=== PATIENT | female | born 1975 | race Caucasian/White ===

== ENCOUNTER 2020-07-23 15:05 | Outpatient (CLI) | payer BC, SELFPAY | END 2020-07-23 15:06 | disposition home or self-care (01) | LOC: ANHAUDIO 15:07 | PROVIDERS: PCP Family Medicine; Visit Provider Nurse Practitioner Family | DX: H90.42 Sensorineural hearing loss, unilateral, left ear, with unrestricted hearing on the contralateral side (principal) | CPT/HCPCS: 92557; 92567 ==

== ENCOUNTER 2020-08-14 14:21 | Outpatient (RCR) | payer BC, SELFPAY | END 2020-08-14 23:59 | disposition home or self-care (01) | LOC: ANHAUDIO 14:21 | PROVIDERS: PCP Family Medicine; Visit Provider Family Medicine | DX: Z46.1 Encounter for fitting and adjustment of hearing aid (principal) | CPT/HCPCS: V5257 ==

== ENCOUNTER 2020-10-03 15:24 | Outpatient (CLI) | payer BC, SELFPAY ==
--- NOTE | ~2020-10-03 | MM_ITS ---
EXAMINATION: MM screening oneil BI w angélica HISTORY: Screening mammogram TECHNIQUE: Craniocaudal and mediolateral oblique 3-D tomosynthesis images were obtained and synthetic 2-D images were generated. CAD analysis was submitted and interpreted. COMPARISON: 07/18/2019, , 06/03/2017 bilateral digital screening mammogram examinations BREAST PARENCHYMAL COMPOSITION: There are scattered areas of fibroglandular density. FINDINGS: Occasional bilateral benign calcifications. There is no evidence of suspicious mass, calcif ication, or architectural distortion to suggest malignancy in either breast. There has been no suspic ious interval change. IMPRESSION: 1. No mammographic evidence of malignancy. 2. Recommend routine screening mammography in one year. BI-RADS Category 2: Benign finding(s). Reviewed, dictated and finalized at location A. [employer]
== END 2020-10-03 15:25 | disposition home or self-care (01) ==
LOC: ANHIMG 15:25
PROVIDERS: PCP Family Medicine; Visit Provider Advanced Practice Midwife
DX: Z12.31 Encounter for screening mammogram for malignant neoplasm of breast (principal)
CPT/HCPCS: 77063; 77067

== ENCOUNTER → 2021-01-10 08:46 | Outpatient (CLI) | payer BC, SELFPAY ==
[2021-01-10 11:10] LABS: Influenza Control Positive
[2021-01-10 20:12] LABS: SARS-CoV-2 RNA PCR Negative
== END ==
PROVIDERS: PCP Family Medicine; Visit Provider Nurse Practitioner Family
DX: R68.89 Other general symptoms and signs (principal); Z20.822 Contact with and (suspected) exposure to COVID-19
CPT/HCPCS: 87804; C9803; U0003; U0005

== ENCOUNTER 2021-02-01 09:18 | Outpatient (CLI) | payer BC, SELFPAY | END 2021-02-01 09:19 | disposition home or self-care (01) | LOC: ANHCOVIDVC 09:18 | PROVIDERS: PCP Family Medicine | DX: Z23 Encounter for immunization (principal) | CPT/HCPCS: 0001A; 91300 ==

== ENCOUNTER 2021-02-22 10:32 | Outpatient (CLI) | payer BC, SELFPAY | END 2021-02-22 10:33 | disposition home or self-care (01) | LOC: ANHCOVIDVC 10:33 | PROVIDERS: PCP Family Medicine | DX: Z23 Encounter for immunization (principal) | CPT/HCPCS: 0002A; 91300 ==

== ENCOUNTER 2021-12-17 17:16 | Outpatient (CLI) | payer BC, SELFPAY ==
--- NOTE | ~2021-12-17 | MM_ITS ---
EXAMINATION: MM screening [facility] BI w angélica HISTORY: Screening mammogram TECHNIQUE: Craniocaudal and mediolateral oblique 3-D tomosynthesis images were obtained and synthetic 2-D images were generated. CAD analysis was submitted and interpreted. COMPARISON: 10/03/2020, 07/18/2019, 06/24/2018 BREAST PARENCHYMAL COMPOSITION: There are scattered areas of fibroglandular density. FINDINGS: There is no evidence of suspicious mass, calcification, or architectural distortion to sugg est malignancy in either breast. There has been no suspicious interval change. IMPRESSION: 1. No mammographic evidence of malignancy. 2. Recommend routine screening mammography in one year. BI-RADS Category 1: Negative Reviewed, dictated and finalized at location A. SERVIC[employer] HEL[employer]
== END 2021-12-17 17:17 | disposition home or self-care (01) ==
LOC: ANHIMG 17:18
PROVIDERS: PCP Family Medicine; Visit Provider Advanced Practice Midwife
DX: Z12.31 Encounter for screening mammogram for malignant neoplasm of breast (principal)
CPT/HCPCS: 77063; 77067

== ENCOUNTER 2023-03-11 20:10 | Emergency (ER) | payer BC, SELFPAY ==
[2023-03-11 20:14] VITALS: BP 136/89; PULSE 86; RESP 16; TEMP 36.9; O2SAT 97
--- NOTE | 2023-03-11 21:57 | ED.GENADULT ---
HPI - General Adult General Chief complaint: Head Injury Stated complaint: head injury Time Seen by Provider: 03/11/23 20:53 History of Present Illness HPI narrative: is a 48-year-old female presenting ED with a chief complaint of a head injury. The patient had new cabinets installed in her house. When she was getting up from feeding the dog she struck the top of her head on the corner of the cabinet. She denies loss of consciousness, she denies use of blood thinners or anticoagulation. She has had some nausea but no vomiting. She has no neurologic findings. There was some mild bleeding on site. Her tetanus is up-to-date. No other complaints. Related Data Home Medications Medication Instructions Recorded Confirmed trazodone 100 mg tablet 100 mg PO .bedtime 06/22/20 02/05/22 venlafaxine 100 mg tablet 200 mg PO DAILY 06/22/20 02/05/22 Saccharomyces boulardii 250 mg 250 mg PO BID 02/05/22 02/05/22 capsule (Daily Probiotic (S. boulardii)) bupropion HCl 200 mg tablet,12 hr 200 mg PO DAILY 02/05/22 02/05/22 sustained-release (Wellbutrin SR) cholecalciferol (vitamin D3) 25 25 mcg PO DAILY 02/05/22 02/05/22 mcg (1,000 unit) capsule glucosamine 375 bu-zoqpxxlls-cdj tablet PO 02/05/22 02/05/22 no1 500 mg-C 15 mg-gautam 0.5 mg tablet (Ctprepijwld-Elykgfrdluo-BUP Complex) multivitamin 1 tablet PO DAILY 02/05/22 02/05/22 Allergies Allergy/AdvReac Type Severity Reaction Status Date / Time cefuroxime Allergy Unknown Unknown Verified 03/11/23 20:11 [facility] Past Medical History Medical History BMI 29.0-29.9,adult Family History Family History Grandparent Carcinoma of colon Diabetes mellitus Breast cancer Hypertension Father Heart disease History of open heart surgery Social History Social History Alcohol intake: current Drinks per week: 1 Substance use: never Substance use type: does not use Living arrangements: with family Occupation/Education: occupation 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 Head: Small abrasion to the top of his scalp without gaping laceration EYES: EOMI, pupils NAYAN NOSE: Atraumatic NECK: Trachea midline RESPIRATORY: No increased rate of breathing CARDIOVASCULAR: RRR, ABDOMINAL: Non-distended MUSCULOSKELETAl: No obvious deformities NEURO: Alert. Cranial nerves 2-12 grossly intact. Sensation light touch, motor function cerebellar function intact for 4 extremities. Gait exam was normal. SKIN:: Warm, dry. Normal color PSYCHIATRIC: Normal affect Course Vital Signs Vital signs: Vital Signs Temperature 98.4 F 03/11/23 20:14 Pulse Rate 86 03/11/23 20:14 Respiratory Rate 16 03/11/23 20:14 Blood Pressure 136/89 03/11/23 20:14 Pulse Oximetry 97 03/11/23 20:14 Oxygen Delivery Room Air 03/11/23 20:14 Temperature 98.4 F 03/11/23 20:14 Pulse Rate 86 03/11/23 20:14 Respiratory Rate 16 03/11/23 20:14 Blood Pressure 136/89 03/11/23 20:14 Pulse Oximetry 97 03/11/23 20:14 Oxygen Delivery Room Air 03/11/23 20:14 Medical Decision Making MDM Narrative Medical decision making narrative: -Presentation: 48-year-old female presenting ED with chief complaint of head injury. 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
[2023-03-11] MEDS: ACETAMINOPHEN 500 MG TABLET 1000 MG PO (22:15)
[2023-03-11 22:18] VITALS: BP 126/91; PULSE 82; RESP 18; O2SAT 99
== END 2023-03-11 22:58 | disposition home or self-care (01) ==
PROVIDERS: Emergency Provider Emergency Medicine; PCP Family Medicine
DX: S00.01XA Abrasion of scalp, initial encounter (principal); W22.09XA Striking against other stationary object, initial encounter
CPT/HCPCS: 99282; A9270

== ENCOUNTER 2023-03-17 14:39 | Outpatient (CLI) | payer BC, SELFPAY ==
--- NOTE | ~2023-03-17 | MM_ITS ---
EXAMINATION: MM screening oneil BI w angélica HISTORY: Screening mammogram TECHNIQUE: Craniocaudal and mediolateral oblique 3-D tomosynthesis images were obtained and synthetic 2-D images were generated. CAD analysis was submitted and interpreted. COMPARISON: 12/17/2021, 10/03/2020, 07/18/2019 bilateral screening mammogram examinations BREAST PARENCHYMAL COMPOSITION: The breasts are almost entirely fatty. FINDINGS: Bilateral benign-appearing axillary tail lymph nodes. There is no evidence of suspicious ma ss, calcification, or architectural distortion to suggest malignancy in either breast. There has been no suspicious interval change. IMPRESSION: 1. No mammographic evidence of malignancy. 2. Recommend routine screening mammography in one year. BI-RADS Category 1: Negative Reviewed, dictated and finalized at location A.
== END 2023-03-17 14:40 | disposition home or self-care (01) ==
PROVIDERS: PCP Family Medicine; Visit Provider Nurse Practitioner
DX: Z12.31 Encounter for screening mammogram for malignant neoplasm of breast (principal)
CPT/HCPCS: 77063; 77067

== ENCOUNTER 2023-08-24 03:01 | Day surgery (SDC) | payer BC, SELFPAY ==
[2023-08-11 14:43] VITALS: BMI 26.7
--- NOTE | 2023-08-22 09:27 | PM.HPGS ---
History of Present Illness History of Present Illness Consent: Risks, benefits, and alternatives have been discussed and questions answered. Patient agrees to proceed with procedure. Chief complaint: neoplasm screening Narrative: Yissel Laureano is a 48 year old female Was referred for colon cancer screening. Review of Systems Review of Systems: All systems reviewed & are unremarkable except as noted in HPI and below PMFSH Past Medical History Medical History BMI 27.0-27.9,adult BMI 29.0-29.9,adult Family History Family History Grandparent Carcinoma of colon Diabetes mellitus Breast cancer Hypertension Father Heart disease History of open heart surgery Mother No problems noted. Sibling No problems noted. 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 Gender identity (if verbalized by the patient): Female Sexual Orientation (if Verbalized by the Patient): Straight or Heterosexual Spiritual care concerns: No Agree to blood products: Yes Meds Home Medications and Allergies Home Medications Medication Instructions Recorded Confirmed Type trazodone 100 mg tablet 100 mg PO .bedtime 06/22/20 08/12/23 History cholecalciferol (vitamin D3) 25 25 mcg PO DAILY 02/05/22 08/12/23 History mcg (1,000 unit) capsule multivitamin 1 tablet PO DAILY 02/05/22 08/12/23 History bupropion HCl 300 mg 24 hr tablet, 300 mg PO QAM 03/24/23 08/12/23 History extended release venlafaxine 75 mg capsule,extended 75 mg PO DAILY 06/30/23 08/12/23 History release 24 hr (Effexor XR) Allergies Allergy/AdvReac Type Severity Reaction Status Date / Time cefuroxime Allergy Unknown Unknown Verified 08/24/23 09:22 Exam Const: General: alert Orientation/consciousness: patient oriented x3 Resp: Auscultation: clear to auscultation bilaterally Cardio: Rhythm: regular rhythm GI: GI Palp: Yes Soft to palpation and No Tenderness to palpation present (GI) Neuro: General: patient oriented x3 Assessment and Plan Assessment and plan (1) Encounter for screening colonoscopy: Code(s): Z12.11 - Encounter for screening for malignant neoplasm of colon Status: Acute Assessment and Plan: Colonoscopy with possible biopsy or polypectomy or cautery or injection of substances.
[2023-08-24 09:23] VITALS: BP 136/81; PULSE 94; RESP 18; TEMP 36.6; O2SAT 99
[2023-08-24] MEDS: LACTATED RINGERS 1,000 ML 150 ML IV CONT (09:33)
--- NOTE | 2023-08-24 09:37 | WPDANESEPPF ---
Anes - Initial Pre Proc Eval Procedure: Operation Date: 08/24/23 10:30 Proposed Procedures p Screening Colonoscopy - Jalil Singh MD Date/Time: 08/24/23 09:37 Surgeon: Jalil Singh MD Pre Op Diagnosis: neoplasm screening Patient Data Age: 48 Gender: F Height: 1.65 m Weight: 78.8 kg Last Vital Signs Temp 98 F 08/24/23 09:23 Pulse 94 08/24/23 09:23 Resp 18 08/24/23 09:23 BP 136/81 08/24/23 09:23 Pulse Ox 99 08/24/23 09:23 O2 Del Method Room Air 08/24/23 09:23 Allergies Allergy/AdvReac Type Severity Reaction Status Date / Time cefuroxime Allergy Unknown Unknown Verified 08/24/23 09:22 Home Medications Medication Instructions Recorded Confirmed Type trazodone 100 mg tablet 100 mg PO .bedtime 06/22/20 08/12/23 History cholecalciferol (vitamin D3) 25 25 mcg PO DAILY 02/05/22 08/12/23 History mcg (1,000 unit) capsule multivitamin 1 tablet PO DAILY 02/05/22 08/12/23 History bupropion HCl 300 mg 24 hr tablet, 300 mg PO QAM 03/24/23 08/12/23 History extended release venlafaxine 75 mg capsule,extended 75 mg PO DAILY 06/30/23 08/12/23 History release 24 hr (Effexor XR) Patient hx anesthesia problems: none Family hx anesthesia problems: none Results Review: All pre-operative results and documents have been reviewed as part of the pre-operative evaluation. [facility] Past Medical History Medical History BMI 27.0-27.9,adult BMI 29.0-29.9,adult Family History Family History Grandparent Carcinoma of colon Diabetes mellitus Breast cancer Hypertension Father Heart disease History of open heart surgery Mother No problems noted. Sibling No problems noted. 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 Gender identity (if verbalized by the patient): Female Sexual Orientation (if Verbalized by the Patient): Straight or Heterosexual Spiritual care concerns: No Agree to blood products: Yes Anes - Eval Final PreProcedure Day of Procedure 08/24/23 09:37 Patient weight: normal Heart: regular rate and rhythm Lungs: clear to auscultation Airway: Mallampati scale class II Neurological: alert and oriented Last oral intake: >/= 8 hours ASA classification: II Emergent: no Anesthetic plan: proceed Anesthesia type and monitoring: general GIVS and standard monitoring Results Review: All pre-operative results and documents have been reviewed as part of the pre-operative evaluation. Informed Consent: The patient's anesthetic plan and its attendant risks and benefits were discussed with the patient/family/POA. Questions were solicited and answers provided to the satisfaction of the patient/family/POA.
[2023-08-24 10:26] VITALS: BP 104/71; PULSE 79; RESP 12; O2SAT 95
[2023-08-24 10:36] VITALS: BP 104/72; PULSE 83; RESP 19; O2SAT 99
[2023-08-24 10:46] VITALS: BP 107/74; PULSE 72; RESP 17; O2SAT 97
== END 2023-08-24 10:55 | disposition home or self-care (01) ==
PROVIDERS: PCP Family Medicine; Visit Provider Internal Medicine Gastroenterology
PROC: 0DJD8ZZ Inspection of Lower Intestinal Tract, Via Natural or Artificial Opening Endoscopic (ICD-10-PCS; CPT 45378; principal; 2023-08-24 10:30)
DX: Z12.11 Encounter for screening for malignant neoplasm of colon (principal)
CPT/HCPCS: 45378; J2001; J2704; J7120

== ENCOUNTER 2024-07-07 14:00 | Outpatient (RCR) | payer SELFPAY | END 2024-07-07 23:59 | disposition home or self-care (01) | LOC: ANHAUDIO 14:00 | PROVIDERS: PCP Family Medicine; Visit Provider Family Medicine | DX: Z46.1 Encounter for fitting and adjustment of hearing aid (principal) | CPT/HCPCS: 99199; V5014 ==

== ENCOUNTER 2024-07-19 16:18 | Outpatient (CLI) | payer OTHER, SELFPAY ==
--- NOTE | ~2024-07-19 | CT_ITS ---
EXAMINATION: CT abdomen pelvis w con DATE: 07/19/2024 16:55 INDICATION: Right lower quadrant abdominal pain. TECHNIQUE: Computed tomography (CT) of the abdomen and pelvis was performed with 100 mL Omnipaque 350 intravenous contrast. Automated exposure control and iterative reconstruction technique were employe d. The dose-length product was 482.00 mGy-cm. COMPARISON: None. FINDINGS: The visualized portion bases demonstrate mild atelectasis on the right. No pleural effusion . There is normal. No pericardial effusion. The liver, gallbladder, spleen, pancreas, adrenal glands, and kidneys are normal. There is an intrauterine device in expected position. There are no dilated l oops of bowel. The appendix is normal. There are no pathologically enlarged lymph nodes. No ascites. There is severe lower lumbar spondylosis. IMPRESSION: 1. No specific etiology for the patient's symptoms. Reviewed, dictated and finalized at location A.
[2024-07-19 17:07] LABS: Hematocrit 37.2 % (37.0-47.0); Hemoglobin 12.7 g/dL (12.0-15.0); Mean Corpuscular HGB Conc 34.1 g/dl (32-36); Mean Corpuscular Hemoglobin 31.1 pg (26-34); Mean Platelet Volume 11.8 fl (7.4-10.4); Platelet Count Result 195 k/mm3 (150-375); Red Blood Count 4.09 M/mm3 (4.2-5.4); Red Cell Distribution Width 12.1 % (11.5-14.5); White Blood Count 9.9 K/mm3 (4.5-10.0)
[2024-07-19 17:18] LABS: Alanine Aminotransferase 16 U/L (6-35); Albumin Level 4.1 g/dL (3.5-5.1); Alkaline Phosphatase 56 U/L (38-126); Anion Gap 9 mmol/L (4-12); Aspartate Amino Transferase 20 U/L (14-36); Bilirubin,Total 0.4 mg/dL (0.2-1.3); Blood Urea Nitrogen 15 mg/dL (7-17); Calcium 8.6 mg/dL (8.4-10.2); Carbon Dioxide 25 mmol/L (22-30); Chloride 98 mmol/L (98-107); Estimated Glomerular Filt Rate > 60; Glucose 77 mg/dL (65-110); Potassium 3.8 mmol/L (3.4-5.0); Sodium 132 mmol/L (137-145)
== END 2024-07-19 16:19 | disposition home or self-care (01) ==
PROVIDERS: PCP Family Medicine; Visit Provider Nurse Practitioner Family
DX: R10.31 Right lower quadrant pain (principal); R10.813 Right lower quadrant abdominal tenderness
CPT/HCPCS: 36415; 74177; 80053; 85027; Q9967

== ENCOUNTER 2024-09-12 15:20 | Outpatient (CLI) | payer OTHER, SELFPAY ==
--- NOTE | ~2024-09-12 | MM_ITS ---
EXAMINATION: MM screening oneil BI w angélica HISTORY: Screening TECHNIQUE: Craniocaudal and mediolateral oblique 3-D tomosynthesis images were obtained and synthetic 2-D images were generated. CAD analysis was submitted and interpreted. COMPARISON: Comparison to multiple prior studies sequentially, with oldest reviewed study dated 06/03. BREAST PARENCHYMAL COMPOSITION: Not dense: There are scattered areas of fibroglandular density. FINDINGS: There is no evidence of suspicious mass, calcification, or architectural distortion to sugg est malignancy in either breast. There has been no suspicious interval change. IMPRESSION: 1. No mammographic evidence of malignancy. 2. Recommend routine screening mammography in one year. BI-RADS Category 1: Negative Reviewed, dictated and finalized at location B.
== END 2024-09-12 15:21 | disposition home or self-care (01) ==
LOC: ANHIMG 15:38
PROVIDERS: PCP Family Medicine; Visit Provider Nurse Practitioner
DX: Z12.31 Encounter for screening mammogram for malignant neoplasm of breast (principal)
CPT/HCPCS: 77063; 77067

== ENCOUNTER 2024-11-02 07:27 | Day surgery (SDC) | payer OTHER, SELFPAY ==
[2024-09-14 09:16] VITALS: BMI 24.6
[2024-11-02 08:34] VITALS: BP 110/79; PULSE 77; RESP 16; TEMP 36.7; O2SAT 97
[2024-11-02] MEDS: LACTATED RINGERS 1,000 ML 150 ML IV CONT (08:50)
--- NOTE | 2024-11-02 08:58 | P.HP_ITS ---
History of Present Illness History of Present Illness Consent: Risks, benefits, and alternatives have been discussed and questions answered. Patient agrees to proceed with procedure. Chief complaint: Neoplasia screening Narrative: Yissel Laureano is a 49 year old female presents for follow-up colonoscopy. Patient reports that her weight appetite and bowel movements are normal. She denies abdominal pain. Family history is significant grandmother had colon ca ncer. Her mother did not have polyps. Patient underwent colonoscopy 1 year ago but was limited by retained stool. She presents today for follow-up colonoscopy. Review of Systems Review of Systems: All systems reviewed & are unremarkable except as noted in HPI and below PMFSH Past Medical History Medical History Blood present in stool delivery delivered Encounter for screening colonoscopy Head injury Screening for diabetes mellitus Screening for thyroid disorder Family History Family History Grandparent Carcinoma of colon Diabetes mellitus Breast cancer Hypertension Father Heart disease History of open heart surgery AAA (abdominal aortic aneurysm) Mother Hypertension Sibling Anxiety Social History Social History Smoking status: Never smoker Second hand tobacco smoke exposure: No Alcohol intake: current Drinks per week: 1 Substance use: never Substance use type: does not use Do You Feel Safe in your Home?: Yes Lack of Transportation: No Lack of Food: Never True Current Housing: I Have Housing Concerned About Future Housing: No Difficulty Paying Gas/Electric Bills: No Difficulty Paying for Meds: No Currently Unemployed: No Education: Master's Degree or Higher Difficulty w/ Childcare or Family Care: No Living arrangements: with family 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/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: occupation 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 Gender identity (if verbalized by the patient): Female Sexual Orientation (if Verbalized by the Patient): Straight or Heterosexual Spiritual care concerns: No Agree to blood products: Yes Meds Home Medications and Allergies Home Medications ?Medication ?Instructions ?Recorded ?Confirmed ?Type trazodone 100 mg tablet 100 mg PO .bedtime 06/22/20 11/02/24 History cholecalciferol (vitamin D3) 25 25 mcg PO DAILY 02/05/22 11/02/24 History mcg (1,000 unit) capsule multivitamin 1 tablet PO DAILY 02/05/22 11/02/24 History bupropion HCl 300 mg 24 hr tablet, 300 mg PO QAM 03/24/23 11/02/24 History extended release ketoconazole 2 % topical cream 1 applic topical BID #30 grams 03/14/24 11/02/24 Rx tirzepatide (weight loss) 5 mg/0.5 5 mg (0.5 mL) subcut WEEKLY #2 mL 08/08/24 11/02/24 Rx mL subcutaneous pen injector venlafaxine 150 mg 150 mg PO DIRECTED 11/02/24 11/02/24 History capsule,extended release 24 hr Allergies Allergy/AdvReac Type Severity Reaction Status Date / Time cefuroxime AdvReac Intermediate Rash Verified 11/02/24 08:28 Vital Signs Vital Signs - 24 hr 11/02/24 08:34 Temperature 98.0 F Pulse Rate 77 Respiratory Rate 16 Blood Pressure 110/79 Pulse Oximetry 97 Oxygen Delivery Room Air Exam Narrative: Physical exam reveals patient to be alert. Vital signs stable. HEENT exam is unremarkable. Patient is anicteric. Lungs are clear to auscultation and to percussion. heart is without murmur or extra sounds. Abdomen bowel sounds are present soft and nontender with no hepatosplenomegaly . Digital external rectal exam is normal. Assessment and Plan Assessment and plan (1) Screen for colon cancer: Code(s): Z12.11 - Encounter for screening for malignant neoplasm of colon Status: Acute Assessment and Plan: Patient presents today for screening colonoscopy.
--- NOTE | 2024-11-02 09:35 | WPDANESEPPF ---
Anes - Initial Pre Proc Eval Procedure: Operation Date: 11/02/24 09:45 Proposed Procedures p Diagnostic Colonoscopy - Wili Sheikh MD Date/Time: 11/02/24 09:35 Surgeon: Wili Sheikh MD Pre Op Diagnosis: Neoplasia screening Patient Data Age: 49 Gender: F Height: 1.65 m Weight: 63.05 kg Last Vital Signs Temp 36.7 C 11/02/24 08:34 Pulse 77 11/02/24 08:34 Resp 16 11/02/24 08:34 BP 110/79 11/02/24 08:34 Pulse Ox 97 11/02/24 08:34 O2 Del Method Room Air 11/02/24 08:34 Allergies Allergy/AdvReac Type Severity Reaction Status Date / Time cefuroxime AdvReac Intermediate Rash Verified 11/02/24 08:28 Home Medications ?Medication ?Instructions ?Recorded ?Confirmed ?Type trazodone 100 mg tablet 100 mg PO .bedtime 06/22/20 11/02/24 History cholecalciferol (vitamin D3) 25 25 mcg PO DAILY 02/05/22 11/02/24 History mcg (1,000 unit) capsule multivitamin 1 tablet PO DAILY 02/05/22 11/02/24 History bupropion HCl 300 mg 24 hr tablet, 300 mg PO QAM 03/24/23 11/02/24 History extended release ketoconazole 2 % topical cream 1 applic topical BID #30 grams 03/14/24 11/02/24 Rx tirzepatide (weight loss) 5 mg/0.5 5 mg (0.5 mL) subcut WEEKLY #2 mL 08/08/24 11/02/24 Rx mL subcutaneous pen injector venlafaxine 150 mg 150 mg PO DIRECTED 11/02/24 11/02/24 History capsule,extended release 24 hr Patient hx anesthesia problems: none Family hx anesthesia problems: none Results Review: All pre-operative results and documents have been reviewed as part of the pre-operative evaluation. [facility] Past Medical History Medical History delivery delivered Encounter for screening colonoscopy Head injury Blood present in stool Screening for thyroid disorder Screening for diabetes mellitus Family History Family History Grandparent Carcinoma of colon Diabetes mellitus Breast cancer Hypertension Father Heart disease History of open heart surgery AAA (abdominal aortic aneurysm) Mother Hypertension Sibling Anxiety Social History Social History Smoking status: Never smoker Second hand tobacco smoke exposure: No Alcohol intake: current Drinks per week: 1 Substance use: never Substance use type: does not use Do You Feel Safe in your Home?: Yes Lack of Transportation: No Lack of Food: Never True Current Housing: I Have Housing Concerned About Future Housing: No Difficulty Paying Gas/Electric Bills: No Difficulty Paying for Meds: No Currently Unemployed: No Education: Master's Degree or Higher Difficulty w/ Childcare or Family Care: No Living arrangements: with family 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/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: occupation 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 Gender identity (if verbalized by the patient): Female Sexual Orientation (if Verbalized by the Patient): Straight or Heterosexual Spiritual care concerns: No Agree to blood products: Yes Anes - Eval Final PreProcedure Day of Procedure 11/02/24 09:35 Patient weight: normal Heart: regular rate and rhythm Lungs: clear to auscultation Airway: Mallampati scale class II Neurological: alert and oriented Last oral intake: >/= 8 hours ASA classification: II Emergent: no Anesthetic plan: proceed Anesthesia type and monitoring: general GIVS and standard monitoring Results Review: All pre-operative results and documents have been reviewed as part of the pre-operative evaluation. Informed Consent: The patient's anesthetic plan and its attendant risks and benefits were discussed with the patient/family/POA. Questions were solicited and answers provided to the satisfaction of the patient/family/POA.
[2024-11-02 10:00] VITALS: BP 105/69; PULSE 79; RESP 16; O2SAT 100
[2024-11-02 10:12] VITALS: BP 112/70; PULSE 81; RESP 16; O2SAT 100
[2024-11-02 10:20] VITALS: BP 111/73; PULSE 75; RESP 18; O2SAT 100
--- NOTE | 2024-11-02 10:46 | WPDANESPN ---
Anes - Prog Note Post-Op Date/Time: 11/02/24 10:46 Cardiovascular status: normal Respiratory status: normal Airway patency: baseline Mental status: baseline Post-Op hydration status: normal Vital Signs: Last Vital Signs Temp 36.7 C 11/02/24 08:34 Pulse 75 11/02/24 10:20 Resp 18 11/02/24 10:20 BP 111/73 11/02/24 10:20 Pulse Ox 100 11/02/24 10:20 O2 Del Method Room Air 11/02/24 10:20 Pain Score (VAS): 0/10 I/O: Intake & Output 11/01/24 11/02/24 11/02/24 23:59 07:59 15:59 Intake Total 500 Balance 500 Patient Feedback: Patient satisfied with anesthetic care.
== END 2024-11-02 10:29 | disposition home or self-care (01) ==
PROVIDERS: PCP Family Medicine; Visit Provider Internal Medicine Gastroenterology
PROC: 0DJD8ZZ Inspection of Lower Intestinal Tract, Via Natural or Artificial Opening Endoscopic (ICD-10-PCS; CPT 45378; principal; 2024-11-02 09:45)
DX: Z12.11 Encounter for screening for malignant neoplasm of colon (principal)
CPT/HCPCS: 45378

== ENCOUNTER 2025-09-14 14:17 | Outpatient (CLI) | payer OTHER, SELFPAY ==
--- NOTE | ~2025-09-14 | MM_ITS ---
EXAMINATION: MM screening oneil BI w angélica HISTORY: Screening TECHNIQUE: Craniocaudal and mediolateral oblique 3-D tomosynthesis images were obtained and synthetic 2-D images were generated. CAD analysis was submitted and interpreted. COMPARISON: Comparison to multiple prior studies sequentially, with oldest reviewed study dated 06/24/2018. BREAST PARENCHYMAL COMPOSITION: Not dense: There are scattered areas of fibroglandular density. FINDINGS: There is a developing focal asymmetry medially in the left breast on CC view, anterior third, not definitely seen on MLO view. Right breast is stable without evidence for malignancy. IMPRESSION: 1. Developing left breast asymmetry. 2. Additional mammographic views and possible breast ultrasound are recommended. BI-RADS Category 0: Incomplete: Needs additional imaging evaluation. Reviewed, dictated and finalized at location O. IMPRESSION: 1. Developing left breast asymmetry. 2. Additional mammographic views and possible breast ultrasound are recommended . BI-RADS Category 0: Incomplete: Needs additional imaging evaluation.
--- OUTSIDE RECORDS SUMMARY | 2025-09-14 15:23 | XMS_ITS | Clinical Summary ---
Author Organization [facility] [employer] Address [address] [place] [address] Care Team Providers Care Tax Appraiser Name Role Phone Ladarius Hagan MD Primary Care Provider [phone] Source Comments [facility] [employer],non-owned Affiliates and Associated Physician Practices is amultiple site organization consisting of ambulatory clinics and hospital sitesin [place], [place], [place] and [place]. This disclosure is being madepursuant to the Care Everywhere program and may not contain all information available regarding this patient. Last updated 18.[facility] [employer] Allergies No known active allergies Medications * Be aware that medications may not be up to date on this document. Alwaysverify current medications with the patient. traZODone (DESYREL) 100 MG tablet Take 200 mg by mouth at bedtime Active BuPROPion HCl (WELLBUTRIN PO) Acti ve VENLAFAXINE HCL PO Active BusPIRone HCl (BUSPAR PO) Active Immunizations Immunization Administration Dates Next Due INFLUENZA VACCINE, QUADR. 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 PROFESSOR Pulse 80 12/13/2017 2:55 PM DENTISTRY PROFESSOR Temperature 36.7 C (98 F) 12/13/2017 2:55 PM DENTISTRY PROFESSOR Respiratory Rate 16 12/13/2017 2:55 PM DENTISTRY PROFESSOR Oxygen Saturation 96% 12/13/2017 2:55 PM DENTISTRY PROFESSOR Inhaled Oxygen Concentration - - Weight 65.3 kg (144 lb) 12/13/2017 2:55 PM DENTISTRY PROFESSOR Height 167.6 cm (5' 6) 12/13/2017 2:55 PM DENTISTRY PROFESSOR Body Mass Index 23.24 12/13/2017 2:55 PM DENTISTRY PROFESSOR Plan of Treatment Health Maintenance Due Date Last Done Comments COLOGUARD (AGES 45-75) - COL ON CA SCREENING 1976 COLON MONITORING 1976 COLONOSCOPY - COLON CA SCREENING 1976 CT COLONOGRAPHY - COLON CA SCREENING 1976 Colorectal Cancer Screening 1976 FIT - COLON CA SCREENING 1976 FLEX SIG - COLON CA SCREENING 1976 LIPID TESTING 1976 MAMMOGRAM 1976 HIV SCREENING 1991 HEPATITIS C SCREENING 03/01/1994 DTAP/TDAP/TD VACCINES (1 - Tdap) 1995 HEPATITIS B VACCINE (1 of 3 - 19+ 3-dose series) 1995 DEPRESSION SCREENING 11/23/2024 COVID-19 VACCINE (1 - 2023-2 5 season) 2025 INFLUENZA VACCINE (#1) 2025 9, 10/27/2018 ZOSTER VACCINE (1 of 2) 2026 HIB VACCINE Aged Out No longer eligi ble based on patient's age to complete this topic HPV VACCINE Aged Out No longer eligi ble based on patient's age to complete this topic MENINGOCOCCAL (Group B) VACCINE SHARED DECISION-MAKING Aged Out No longer eligible based on patient's age to complete this topic MENINGOCOCCAL GROUPS A/C/Y/W VACCINE Aged Out No longer eligible b ased on patient's age to complete this topic Insurance [employer] Care Teams Tax Appraiser Relationship Specialty Start Date End Date Ladarius Hagan MD [address] [place] [address] PCP - General Family Medicine 01/12/17
--- OUTSIDE RECORDS SUMMARY | 2025-09-14 15:23 | XMS_ITS | Data Portability ---
Author Organization [facility] Address [address] [place] [address] Care Team Providers Care Sports Nutritionist Name Role Phone TORI BADILLO Primary Care Provider Assessment Encounter Date Assessment Date Assessment LastModified by Organization Details LastModified Time 02/22/2024 02/22/2024 Annual gynecological exam performed. Patient will come back in a year unless there are new symptoms. [email or web address] Not available 02/22/2024 11:06:43 03/09/2025 03/09/2025 Annual gynecological exam performed. Patient will come back in a year unless there are new symptoms. [email or web address] Not available 03/09/2025 14:51:59 Plan of Treatment Reminders Order Date Submit Date Provider Last Modified By Organization Details Last Modified Time Details Appointments None recorded. Lab urinalysis, dipstick 2024 025 [email or web address] [place], [address], [place], [address], 5 15:44:08 culture, urine 2024 025 [facility] (Lab), [address], [place], [address], 5 05:33:17 thyroglobul in Ab, serum 2022 023 [facility] (Lab), [address], [place], [address], 3 05:11:53 free T3, quantitativ e, dialysis serum or plasma 2022 023 [facility] (Lab), [address], [place], [address], 3 05:11:52 T4, free, serum 2022 023 [facility] (Lab), [address], [place], [address], 3 05:11:53 TSH, serum or plasma 2022 023 [facility] (Lab), [address], [place], [address], 3 05:11:52 Referral None recorded. Procedures None recorded. Surgeries None recorded. Imaging MAMMO, screening, digital, bilateral [address] [facility], [address], [place], [address], 5 12:36:45 MAMMO, screening, digital, bilateral 2023 024 [facility], [address], [place], [address], 4 05:01:04 US, pelvis, complete 2023 024 [facility], [address], [address], [place], [address], 4 05:01:04 Medication Orders phentermine 15 mg capsule 2022 023 [id number], [address], [place], [place], [id number], 3 09:25:43 phentermine 15 mg capsule 2022 023 [id number], [address], [place], [place], [id number], 09:25:43 Patient TargetsNo targets recorded. Patient InstructionsNo instructions recorded. Reason for Referral None Reported. Results Created Date Observation Date Name Description Value Unit Range Abnormal Flag Note LastModifiedBy Organization Detail LastModifiedTime 05/13/2005/13/2023 HEMOG LOBIN A1C hemoglobin A1C 5.2 % 0-5.6 The Ameri can Diabe boo Assoc iatio n recom mends that a prima ry goal of thera py lorne d be a HBA1C of < 7% and that physi cians shoul d reeva luate the treat ment regim en in patie nts with HBA1C value s consi stent ly > 8%. <5.7% Roladna l 5.7 - 6.4% Incre ased risk for diabe boo >=6.5 % Diagn ostic of diabe boo <7.0% Goal of thera py >8.0% Actio n sugge sted Not Available [facility] (Lab) [address], [place], [address], 05/14/2023 03:14:55 07/24/2007/24/2023 TSH TSH 0.68 uIU/m L 0.30-5 .33 Not Available [facility] (Lab) [address] [place], [address], 07/25/2023 05:11:52 07/24/2007/24/2023 FREE T3 T3, free 2.93 pg/mL 2.50-3 .90 Not Available [facility] (Lab) [address] [place], [address], 07/25/2023 05:11:52 07/24/20 23 07/24/2023 T4 FREE T4, free 0.64 NG/dL 0.60-1 .40 Not Available [facility] (Lab) [address] [place], [address], 07/25/2023 05:11:53 07/24/20 23 07/24/2023 THYRO ID ANTIB KASEY PANEL thyroglobuli n antibody <1.0 IU/mL <=3.9 Not Available [facility] (Lab) [address], [place], [address], 07/25/2023 05:11:53 07/24/20 23 07/24/2023 THYRO ID ANTIB KASEY PANEL thyroperoxid ase antibodies 1.1 IU/mL 0.0-9. 0 This assay was perfo rmed using Beckm an Coult er reage nts and test kits. Value s obtai nikki with other assay metho ds or kits canno t be used inter hilton eably . Not Available [facility] (Lab) [address], [place], [address], 07/25/2023 05:11:53 02/22/20 24 02/22/2024 IMAGE GUIDE D PAP AND HPV REGAR DLESS image guided Pap, HPV regardless of Pap result SEE RESULT S BELOW CASE REPOR T: Cytol ogy Gynec ologi xander Repor t Case: [id number] Autho maribel g Provi terrance: Nazanin Coyle, LISA Colle cted: 02/21 1433 Order ing Locat ion: [place] [facility] Recei goldy: 02/22 0123 First Scree n: Strut z, Willi am, CT Rescr een: Joy Gonzalez , LUKAS Speci men: Scree asad Pap - Image d, Cervi x STATE MENT OF ADEQU ACY: Satis facto ry for evalu ation Trans forma tion zone compo nent prese nt FINAL DIAGN OSIS: Negat yohana for Intra epith elial Rebekah longoria or Becca guajardo (NIL) . Elect ulises pugh d by Joy Gonzalez , CT on 024 at 2:53 PM ----- ----- ----- ----- ----- ----- ----- ----- ----- ----- ----- ----- ----- ----- ----- ----- ----- ---- HPV RESUL TS: HPV mRNA E6/E7 : No HPV mRNA Detec mckayla NOTE: This high risk HPV mRNA assay detec ts fourt een high- risk HPV types (16, 18, 31, 33, 35, 39, 45, 51, 52, 56, 58, 59, 66, 68) witho ut diffe renti ation . COMME NT: This speci men was revie wed by a Cytot echno logis t and/o r Patho logis t (as indic ated in this repor t) after evalu ation using the Thinp rep Imagi ng Syste m. CLINI XANDER INFOR MATIO N: Menst rual Statu s: LMP (if appli cable ): Clini xander Histo ry/Pr eviou s Pap: Type of Neopl alberto (if appli cable ): Signi fican t Clini xander Findi ngs: Other Histo ry: Hormo joshua (if appli cable ): PAP EDUCA MIKI L NOTE: The Pap Test is a scree asad test with an inher ent false negat yohana rate. Liqui d-bas ed sampl ing may decre ase, but will not elimi pina, false negat yohana resul ts. A negat yohana resul t does not precl ude the prese nce and/o r devel opmen t of disea se, since the prese nce of abnor mal cells in the sampl e depen ds on the locat ion of the lesio n and sampl ing techn ique. Cleo nued regul ar scree asad is the best metho d of cance r preve ntion . If repor mckayla cytol ogic findi ng do not corre late with physi xander and/o r histo rical findi ngs, furth er inves tigat ion is recom yasmani d, as shane syed nted. Not Available [facility] (Lab) [address], [place], [address], 02/24/2024 15:56:35 03/09/20 25 03/09/2025 CULTU RE: URINE result report SEE RESULT S BELOW abnormal Test: Cultu re: Urine Speci men Sourc e: Urine - Clean Catch Speci men Type: Urine Speci men Date: 2024 1504 Resul t Date: 2024 0429 Resul t Statu s: Final resul t Abnor mal: Yes Resul ting Lab: [facility] [address] [facility] [address] Tel: CULTU RE ----- ----- ----- --- 10,00 0-25, 000 CFU/m l Strep tococ cus dysga lacti ae (Abno rmal) Not Available [facility] (Lab) [address], [place], [address], 03/11/2025 05:33:17 03/09/20 25 03/09/2025 urina lysis , dipst ick Leukocytes - Not Available [facility] [address], [place], [address], 03/09/2025 15:42:49 03/09/20 25 03/09/2025 urina lysis , dipst ick Nitrite - Not Available [facility] [address], [place], [address], 03/09/2025 15:42:49 03/09/20 25 03/09/2025 urina lysis , dipst ick Urobilinogen - Not Available [facility] [address], [place], [address], 03/09/2025 15:42:49 03/09/20 25 03/09/2025 urina lysis , dipst ick Protein trace Not Available [facility] [address], [place], [address], 03/09/2025 15:42:49 03/09/20 25 03/09/2025 urina lysis , dipst ick pH 8 Not Available [facility] [address], [place], [address], 03/09/2025 15:42:49 03/09/20 25 03/09/2025 urina lysis , dipst ick Specific Clute 1.010 Not Available [facility] [address], [place], [address], 03/09/2025 15:42:49 03/09/20 25 03/09/2025 urina lysis , dipst ick Ketone - Not Available [facility] [address], [place], [address], 03/09/2025 15:42:49 03/09/20 25 03/09/2025 urina lysis , dipst ick Bilirubin - Not Available [facility] [address], [place], [address], 03/09/2025 15:42:49 03/09/20 25 03/09/2025 urina lysis , dipst ick Glucose - Not Available [place] [address], [place], [address], 03/09/2025 15:42:49 03/09/20 25 03/09/2025 urina lysis , dipst ick Appearance clear Not Available [facility] [address], [place], [address], 03/09/2025 15:42:49 03/09/20 25 03/09/2025 urina lysis , dipst ick Color light yellow Not Available [facility] [address], [place], [address], 03/09/2025 15:42:49 09/12/20 24 09/12/2024 MAMMO , scree asad, digit al, bilat eral No observ ation record ed. [facility] [address], [place], [address], 09/14/2024 21:42:07 Result Notes None recorded. Problems Name Problem SNOMED Code Status Onset Date Resolution Date Notes Provider Name and Address Organization Details Recorded Time Speciali zed medical examinat ion Completed 201002/01/2021 Routine gynecolo gical examinat ion;Prac nic ID: 0001 Marielena dubose [facility] 12:50:32 Screenin g for malignan t neoplasm of cervix Completed 201002/01/2021 Pap Smear;Pr actice ID: 0001 Marielena dubose [facility] 12:50:25 Vaginiti s and vulvovag initis Completed 201002/01/2021 Vaginiti s and vulvovag initis, unspecif ied;Prac nic ID: 0001 Marielena dubose [facility] 12:50:34 Malaise and fatigue [id number] Completed 201002/01/2021 Fatigue And Malaise; Practice ID: 0001 Marielena dubose [facility] 12:50:16 Adult health examinat ion Completed 201302/01/2021 ROUTINE MEDICAL EXAM;Rec orded Elsewher e: No Locat ion: Yao prasad [facility] S ource: EHR Hand Shaper andrea: N Practi ce ID: 0001 Ousmane lable Time: 11:30:00 AM Marielena dubose [facility] 12:50:09 Postvira l fatigue syndrome [id number] Completed 201502/01/2021 Postvira l fatigue syndrome ;Practic e ID: 0001 Marielena Anderson [facility] 12:50:19 Removal of intraute rine device Completed 201502/01/2021 Encounte r for removal of intraute rine contrace ptive device;P ractice ID: 0001 Marielena dubose, [facility] 12:50:23 Pregnanc y test negative [id number] Completed 201502/01/2021 Encounte r for pregnanc y test, result negative ;Practic e ID: 0001 Marielena dubose, [facility] 12:50:21 Insertio n of intraute rine contrace ptive device Completed 201510/09/2021 Encounte r for insertio n of intraute rine contrace ptive device;R ecorded Elsewher e: No [facility] andrea: N Practi ce ID: 0001 Ousmane lable Time: 09:15:00 AM Marielena dubose [facility] 16:29:54 Depressi ve disorder [id number] Completed 201510/09/2021 Major depressi ve disorder , single episode, unspecif ied;Prac nic ID: 0001 Marielena dubose, [facility] 16:29:52 Body mass index 25-29 - overweig ht [id number] Completed 201602/01/2021 Body mass index (BMI) 25.0-25. 9, adult;Re corded Elsewher e: No Locat ion: [facility] S ource: EHR Hand Shaper andrea: N Practi ce ID: 0001 Ousmane lable Time: 10:15:00 AM Marielena dubose [facility] 12:50:12 Screenin g for malignan t neoplasm of rectum Completed 201702/01/2021 Encounte r for screenin g for malignan t neoplasm of rectum;P ractice ID: 0001 Marielena dubose, [facility] 12:50:[address] Concept Completed 201802/01/2021 Encntr for gynecologist exam (general ) (routine ) w/o abn findings ;Practic e ID: 0001 Marielena dubose [facility] 12:50:[address] Concept Completed 201802/01/2021 Encntr for general adult medical exam w/o abnormal findings ;Recorde d Elsewher e: No Locat ion: Yao prasad [facility] S ource: EHR Hand Shaper andrea: N Practi ce ID: 0001 Ousmane lable Time: 01:15:00 PM Marielena dubose [facility] 12:50:29 Problem Notes None recorded. Procedures Surgical History Date Name Laterality Status Provider Name and Address Organization Details Recorded Time 09/12/20 24 Date of Last Mammogram completed [facility] 03/09/2025 14:52:36 02/22/20 24 Date of Last Pap Smear completed Kristin Navarro [facility] 03/09/2025 14:52:15 02/02/20 21 IUD Removal completed Marielenarivera Anderson [facility] 02/01/2021 12:51:55 02/02/20 21 IUD Insertion completed Vicenta Tam CNM [address], [place], [address], [facility] 02/01/2021 12:57:21 11/23/19 11 sinusotomy, multiple completed Marielena Anderson [facility] 10/10/2021 12:18:33 04/12/20 08 section completed Marielena Anderson [facility] 07/23/2020 20:50:11 03/22/20 03 [facility]2020 20:50:56 Colonoscopy completed Marielenarivera Anderson [facility] 10/09/2021 16:29:34 Imaging Results None recorded. Procedure Notes None recorded. Medical Equipment None Reported. Allergies No known drug allergies Medications Name Sig Start Date Stop Date Status Note LastModified by Organization Details LastModified Time Mirena 21 mcg/24 hr (up to 8 years) 52 mg intrauter ine device 2020 active inserted 1 and need removed 8 Not Available Not Available Not Available buspirone 5 mg tablet take 1 tablet by oral route 3 times every day 04/26 completed Prescrib ed Elsewher e: Yes Loca tion: Yao prasad [facility] odify By: [email or web address] Encount er DateTime : 10/17/20 15 01:00:00 PM Not Available Not Available Not Available venlafaxi ne ER 75 mg capsule,e xtended release 24 hr TAKE 1 CAPSULE BY MOUTH EVERY MORNING active Not Available Not Available No t Available ketoconaz ole 2 % shampoo 07/23 completed Not Available Not Available Not Available benzonata te 200 mg capsule TAKE 1 CAPSULE BY MOUTH THREE TIMES DAILY FOR 10 DAYS 03/09 completed Not Available Not Available Not Available Effexor XR 37.5 mg capsule,e xtended release take 1 capsule by oral route every day with food 02/01 completed Prescrib ed Elsewher e: Yes Loca tion: Yao prasad [facility] odify By: [email or web address] Encounte r DateTime : 07/13/20 12 05:15:00 PM Not Available Not Available Not Available clonazepa m 1 mg tablet take 1 tablet by oral route 3 times every day 04/26 completed Prescrib ed Elsewher e: Yes [facility] By: [email or web address] Encount er DateTime : 10/15/20 11 11:00:00 AM Not Available Not Available Not Available Zithromax Z-Cam 250 mg tablet take 2 tablet (500MG) by oral route every day for 1 day then 1 tablet (250 mg) by oral route once daily for 4 days 10/31 completed Prescrib ed Elsewher e: No Locat ion: Yao prasad [facility] odify By: gmedical Encount er DateTime : 10/23/20 11 10:14:18 AM Not Available Not Available Not Available phentermi ne 15 mg capsule TAKE 1 CAPSULE BY MOUTH EVERY DAY 08/04 completed Not Available Not Available Not Available venlafaxi ne ER 150 mg capsule,e xtended release 24 hr TAKE ONE CAPSULE BY MOUTH EVERY MORNING 03/09 completed Not Available Not Available Not Available Wellbutri n SR 150 mg tablet, 12 hr sustained -release TAKE ONE TABLET BY MOUTH TWICE DAILY 04/17 completed Prescrib ed Elsewher e: No Locat ion: Yao prasad [facility] odify By: [email or web address] Prasad jorge DateTime : 03/30/20 03:22:20 PM Not Available Not Available Not Available ciproflox acin 500 mg tablet TAKE 1 TABLET BY MOUTH EVERY 12 HOURS active Not Available Not Available No t Available clindamyc in 1 %-benzoyl peroxide 5 % topical gel 10/09 completed Not Available Not Available Not Available Wellbutri n SR 100 mg tablet, 12 hr sustained -release take 1 tablet by oral route 2 times every day 04/26 completed Prescrib ed Elsewher e: Yes Loca tion: Yao prasad [facility] odify By: Encount er DateTime : 04/20/20 18 11:30:00 AM Not Available Not Available Not Available flaxseed oil 1,000 mg capsule 07/13 completed Prescrib ed Elsewher e: Yes Loca tion: [facility]ao [facility] odify By: kiki Villanueva r DateTime : 10/15/20 11 11:00:00 AM Not Available Not Available Not Available Metrogel Vaginal 0.75 % (37.5 mg/5 gram) insert 1 applicat orful (37.5MG) by vaginal route every day at bedtime 07/13 completed Prescrib ed Elsewher e: No [facility] By: kiki Lovelacete r DateTime : 10/23/20 11 10:14:18 AM Not Available Not Available Not Available trazodone 100 mg tablet TAKE 1 TABLET BY MOUTH DAILY AT BEDTIME active Not Available Not Available No t Available Vitamin D2 1,250 mcg (50,000 unit) capsule take 1 capsule by oral route every week 04/17 completed Prescrib ed Elsewher e: No [facility]at [facility] od[facility] By: miley patel DateTime : 02/19/20 16 10:45:51 AM Not Available Not Available Not Available ketoconaz ole 2 % topical cream APPLY TOPICALL Y TO THE AFFECTED AREA TWICE DAILY active Not Available Not Available No t Available amoxicill in 875 mg-potass ium clavulana te 125 mg tablet TAKE 1 TABLET BY MOUTH TWICE DAILY FOR 10 DAYS 12/24 completed Not Available Not Available Not Available amoxicill in 500 mg-potass ium clavulana te 125 mg tablet TAKE 1 TABLET BY MOUTH EVERY 12 HOURS FOR 7 DAYS active Not Available Not Available No t Available Wellbutri n SR 200 mg tablet, 12 hr sustained -release take 1 tablet by oral route 2 times every day 04/20 completed Prescrib ed Elsewher e: No [facility]at [facility] odify By: miley patel DateTime : 04/30/20 17 09:43:01 AM Not Available Not Available Not Available ciclopiro x 1 % shampoo APPLY TOPICALL Y 2 TO 3 TIMES WEEKLY active Not Available Not Available No t Available bupropion HCl XL 300 mg 24 hr tablet, extended release TAKE 1 TABLET BY MOUTH EVERY MORNING active Not Available Not Available No t Available bupropion HCl XL 150 mg 24 hr tablet, extended release Take 1 tablet every day by oral route. active Not Available Not Available No t Available topiramat e 50 mg tablet TAKE 1 TABLET BY MOUTH TWICE DAILY 08/04 completed Not Available Not Available Not Available nitrofura ntoin monohydra te/macroc rystals 100 mg capsule Take 1 capsule every 12 hours by oral route for 7 days. 02/17 completed Not Available Not Available Not Available Cinnamon 500 mg capsule 07/13 completed Prescrib ed Elsewher e: Yes [facility]oca [facility] odify By: [email or web address] Kay hector DateTime : 10/15/20 11 11:00:00 AM Not Available Not Available Not Available Vitamin D3 10 mcg (400 unit) capsule 07/13 completed Prescrib ed Elsewher e: Yes Loca tion: [facility] odify By: [email or web address] Encounharley r DateTime : 10/15/20 11 11:00:00 AM Not Available Not Available Not Available cholecalc iferol (vitamin D3) 1,250 mcg (50,000 unit) capsule 07/23 completed Not Available Not Available Not Available Oleptro ER 300 mg tablet,ex tended release take 1 tablet by oral route every day at bedtime on an empty stomach 02/01 completed Prescrib ed Elsewher e: Yes Loca tion: [facility] odify By: [email or web address] lli Manoharo jacques DateTime : 10/15/20 11 11:00:00 AM Not Available Not Available Not Available sodium,po tassium,m ag sulfates 17.5 gram-3.13 gram-1.6 gram oral soln TAKE DIRECTED PER WRITTEN INSTRUCT IONS THAT WERE MAILED TO YOU 03/09 completed Not Available Not Available Not Available Saxenda 3 mg/0.5 mL (18 mg/3 mL) subcutane ous pen injector Inject 0.6mg SQ daily x 7 days, then 1.2mg SQ daily x 7 days, then 1.8mg SQ daily x 7 days, then 2.4mg SQ daily x 7 days, then 3mg daily ongoing (maintan ce dose) 02/21 completed Not Available Not Available Not Available clindamyc in 1 %-benzoyl peroxide 5 % topical gel with pump 07/23 completed Not Available Not Available Not Available Zepbound 5 mg/0.5 mL subcutane ous pen injector INJECT 5 MG (0.5 ML) SUBCUTAN EOUSLY WEEKLY active Not Available Not Available No t Available Zepbound 2.5 mg/0.5 mL subcutane ous pen injector ADMINIST ER 2.5 MG UNDER THE SKIN WEEKLY 03/09 completed Not Available Not Available Not Available Vitals Date Recorded Body height Body mass index (BMI) Body weight Systolic And Diastolic Provider Name and Address Organization Details Last Updated DateTime 02/22/2024 163.83 cm 30.4 kg/m2 06598.63 g 117/78 mm[Hg] Niyah Bledsoe [facility] 02/22/2024 14:49:39 Date Recorded Body height Body mass index (BMI) Body weight Systolic And Diastolic Provider Name and Address Organization Details Last Updated DateTime 03/09/2025 163.83 cm 22 kg/m2 42813.73 g 127/77 mm[Hg] Kristin Navarro [facility] 03/09/2025 15:00:49 Date Recorded Body height Body mass index (BMI) Body weight Systolic And Diastolic Provider Name and Address Organization Details Last Updated DateTime 05/16/2023 163.83 cm 29.2 kg/m2 37465.48 g 130/88 mm[Hg] [facility] 05/16/2023 12:07:40 Date Recorded Body height Body mass index (BMI) Body weight Systolic And Diastolic Provider Name and Address Organization Details Last Updated DateTime 06/13/2023 163.83 cm 28.6 kg/m2 42259.11 g 117/79 mm[Hg] [facility] 06/13/2023 11:45:11 Date Recorded Body height Body mass index (BMI) Body weight Systolic And Diastolic Provider Name and Address Organization Details Last Updated DateTime 07/24/2023 163.83 cm 29.8 kg/m2 80871.98 g 129/82 mm[Hg] Cheryl Carter [facility] 07/24/2023 12:24:49 Social History Question Answer Notes LastModified by Organizat ion Details LastModified Time Tobacco Smoking Status Never Smoker Marielena dubose, [facility] 10/09/2021 16:29:34 Do You Have An Advance Directive? No [email or web address] Information n ot available 10/09/2021 If You Are , What Was Your Level Of Alcohol Consumption Prior To ? None [email or web address] Information not available 10/09/2021 How Many Years Have You Consumed Alcohol? 24 [email or web address] Information not available 10/09/2021 Are You Blind Or Do You Have Difficulty Seeing? No [email or web address] Information n ot available 12/24/2022 What Is Your Level Of Caffeine Consumption? Moderate [email or web address] Information not available 10/09/2021 How Much Tobacco Do You Chew? None [email or web address] Information not available 10/09/2021 In The 14 Days Before Symptom Onset, Have You Had Close Contact With A Laboratory-confirm ed COVID-19 While That Case Was Ill? No [email or web address] Information n ot available 02/01/2021 In The 14 Days Before Symptom Onset, Have You Had Close Contact With A Person Who Is Under Investigation For COVID-19 While That Person Was Ill? No [email or web address] Information not available 02/01/2021 Have You Been To An Area Known To Be High Risk For COVID-19? No Information not available 02/01/2021 Are You Deaf Or Do You Have Serious Difficulty Hearing? No [email or web address] Information not available 12/24/2022 What Type Of Diet Are You Following? SPECIFIC [email or web address] Information n ot available 10/09/2021 What Is The Highest Grade Or Level Of School You Have Completed Or The Highest Degree You Have Received? [id number] [email or web address] Information not available 10/09/2021 Are There Any Guns Present In Your Home? No [email or web address] Information not available 10/09/2021 What Was The Date Of Your Most Recent Tobacco Screening? 12/24/2022 Information not available 12/24/2022 Have You Ever Been Counseled For Unhealthy Alcohol Use? No [email or web address] Information not available 10/09/2021 Do You Use Protection During Sex? No [email or web address] Information not available 10/09/2021 Do You Use Your Seat Belt Or Car Seat Routinely? Yes [email or web address] Information not available 02/01/2021 Do You Have Smoke And Carbon Monoxide Detectors In Your Home? Yes Information not available 02/01/2021 How Much Tobacco Do You Smoke? No [id number] Information not available 09/25/2020 Do You Use Sunscreen Routinely? Yes [email or web address] Information not available 02/01/2021 Has Tobacco Cessation Counseling Been Provided? No [email or web address] Information not available 10/09/2021 Have You Used IV Drugs? No [email or web address] Information not available 10/09/2021 Do You Have Difficulty Walking Or Climbing Stairs? No [email or web address] Information not available 12/24/2022 Sex: Unknown Functional Status Question Answer Note LastModified by Organizat ion Details LastModified Time Do you use any illicit or recreational drugs? No [email or web address] Information not available 02/01/2021 Do you or have you ever used any other forms of tobacco or nicotine? No Information not available 10/09/2021 What is your level of alcohol consumption? Occasional [id number] Information not available 09/25/2020 Do you or have you ever used smokeless tobacco? Never used smokeless tobacco [email or web address] Information not available 10/09/2021 Are you able to walk independently without assistance or assistive devices? YESWOREST [email or web address] Information not available 02/01/2021 Are you able to care for yourself independently? 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 No [email or web address] Information not available 12/24/2022 Do you or have you ever used e-cigarettes or vape? Never used electronic cigarettes [email or web address] Information not available 10/09/2021 What is your exercise level? Occasional [id number] Information not available 09/25/2020 Mental Status Question Answer Note LastModified by Organization D etails LastModified Time Do you feel stressed (tense, restless, nervous, or anxious, or unable to sleep at night)? [id number] [email or web address] Information not available 10/09/2021 Family History Relationship Description Onset Age of this Age Resolved Age Notes LastModified by Organization Details LastModified Time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
== END 2025-09-14 14:18 | disposition home or self-care (01) ==
LOC: ANHFOHIMG 14:20
PROVIDERS: PCP Family Medicine; Visit Provider Family Medicine
DX: Z12.31 Encounter for screening mammogram for malignant neoplasm of breast (principal); R92.8 Other abnormal and inconclusive findings on diagnostic imaging of breast
CPT/HCPCS: 77063; 77067

== ENCOUNTER 2025-11-20 10:22 | Outpatient (CLI) | payer OTHER, SELFPAY ==
--- NOTE | ~2025-11-20 | MM_ITS ---
EXAMINATION: MM diagnostic oneil LT w angélica HISTORY: Additional imaging TECHNIQUE: Craniocaudal and mediolateral oblique 3-D tomosynthesis images were obtained and synthetic 2-D images were generated. CAD analysis was submitted and interpreted. COMPARISON: September 142023 and 2022. BREAST PARENCHYMAL COMPOSITION: Not Dense: There are scattered areas of fibroglandular tissue. FINDINGS: The finding questioned on the screening study appears unchanged from older prior studies. Three-dimensional mass is not seen. No suspicious masses are seen. There are no suspicious calcifications. No unexplained architectural distortion is seen. There are no skin or nipple abnormalities identified. There is no adenopathy seen on the images submitted. IMPRESSION: No mammographic evidence to suggest malignancy is seen. The patient may return to screening mammography as per ACR guidelines. BI-RADS 1 - Negative. Reviewed, dictated and finalized at location [facility]
--- OUTSIDE RECORDS SUMMARY | 2025-11-20 10:52 | XMS_ITS | Data Portability ---
Author Organization [facility] Address [address] [address] Care Team Providers Care Electronic Pagination System Operator Name Role Phone TORI BADILLO Primary Care Provider Assessment Encounter Date Assessment Date Assessment LastModified by Organization Details LastModified Time 02/22/2024 02/22/2024 Annual gynecological exam performed. Patient will come back in a year unless there are new symptoms. [email or web address] Not available 02/22/2024 11:06:43 03/09/2025 03/09/2025 Annual gynecological exam performed. Patient will come back in a year unless there are new symptoms. [email or web address] Not available 03/09/2025 14:51:59 Plan of Treatment Reminders Order Date Submit Date Provider Last Modified By Organization Details Last Modified Time Details Appointments None recorded. Lab urinalysis, dipstick 2024 025 [email or web address] [place], [address], [place], [address], 5 15:44:08 culture, urine 2024 025 [facility] (Lab), [address], [place], [address], 5 05:33:17 thyroglobul in Ab, serum 2022 023 [facility] (Lab), [address], [place], [address], 3 05:11:53 free T3, quantitativ e, dialysis serum or plasma 2022 023 [facility] (Lab), [address], [place], [address], 3 05:11:52 T4, free, serum 2022 023 [facility] (Lab), [address] [facility], [place], [address], 3 05:11:53 TSH, serum or plasma 2022 023 [facility] (Lab), [address] [facility], [place], [address], 3 05:11:52 Referral None recorded. Procedures None recorded. Surgeries None recorded. Imaging MAMMO, screening, digital, bilateral [address] [facility], [address], [place], [address], 5 12:36:45 MAMMO, screening, digital, bilateral 2023 024 [facility], [address], [place], [address], 4 05:01:04 US, pelvis, complete 2023 024 [facility], [address], [address], [place], [address], 4 05:01:04 Medication Orders phentermine 15 mg capsule 2022 023 [id number], [address], [place], [place], [id number], 3 09:25:43 phentermine 15 mg capsule 2022 023 [id number], [address], [place], [place], [id number], 09:25:43 Patient TargetsNo targets recorded. Patient InstructionsNo [...] s consi stent ly > 8%. <5.7% Rolanda l 5.7 - 6.4% Incre ased risk for diabe boo >=6.5 % Diagn ostic of diabe boo <7.0% Goal of thera py >8.0% Actio n sugge sted Not Available [facility] (Lab) [address], [place], [address], 05/14/2023 03:14:55 07/24/2007/24/2023 TSH TSH 0.68 uIU/m L 0.30-[address] [facility] (Lab) [address] [place], [address], 07/25/2023 05:11:52 07/24/2007/24/2023 FREE T3 T3, free 2.93 pg/mL 2.50-[address] [facility] (Lab) [address] [place], [address], 07/25/2023 05:11:52 07/24/20 23 07/24/2023 T4 FREE T4, free 0.64 NG/dL 0.60-[address] [facility] (Lab) [address] [place], [address], 07/25/2023 05:11:53 07/24/20 23 07/24/2023 THYRO ID ANTIB KASEY PANEL thyroglobuli n antibody <1.0 IU/mL <=3.9 Not Available [facility] (Lab) [address] [facility] [address] [facility], [place], [address], 07/25/2023 05:11:53 07/24/20 23 07/24/2023 THYRO ID ANTIB KASEY PANEL thyroperoxid ase antibodies 1.1 IU/mL 0.0-9. 0 This assay was perfo rmed using Beckm an Coult er reage nts and test kits. Value s obtai nikki with other assay metho ds or kits canno t be used inter hilton eably . Not Available [facility] (Lab) [address] [facility], [place], [address], 07/25/2023 05:11:53 02/22/20 24 02/22/2024 IMAGE GUIDE [...] d, as shane syed nted. Not Available [facility] (Lab) [address], [place], [address], 02/24/2024 15:56:35 03/09/20 25 03/09/2025 CULTU RE: URINE result report SEE RESULT S BELOW abnormal Test: Cultu re: Urine Speci men Sourc e: Urine - Clean Catch Speci men Type: Urine Speci men Date: 2024 1504 Resul t Date: 2024 0429 Resul t Statu s: Final resul t Abnor mal: Yes Resul ting Lab: [facility] [address] [facility] [address] Tel: CULTU RE ----- ----- ----- --- 10,00 0-25, 000 CFU/m l Strep tococ cus dysga lacti ae (Abno rmal) Not Available [facility] (Lab) [address] [facility], [place], [address], 03/11/2025 05:33:17 03/09/20 25 03/09/2025 urina lysis , dipst ick Leukocytes - Not Available [facility] [address], [place], [address], 03/09/2025 15:42:49 03/09/20 25 03/09/2025 urina lysis , dipst ick Nitrite - Not Available [place] [address], [place], [address], 03/09/2025 15:42:49 03/09/20 25 03/09/2025 urina lysis , dipst ick Urobilinogen - Not Available [facility] [address], [place], [address], 03/09/2025 15:42:49 03/09/20 25 03/09/2025 urina lysis , dipst ick Protein trace Not Available [place] [address], [place], [address], 03/09/2025 15:42:49 03/09/20 25 03/09/2025 urina lysis , dipst ick pH 8 Not Available [place] [address], [place], [address], 03/09/2025 15:42:49 03/09/20 25 03/09/2025 urina lysis , dipst ick Specific Seltzer 1.010 Not Available [facility] [address], [place], [address], 03/09/2025 15:42:49 03/09/20 25 03/09/2025 urina lysis , dipst ick Ketone - Not Available [place] [address], [place], [address], 03/09/2025 15:42:49 03/09/20 25 03/09/2025 urina lysis , dipst ick Bilirubin - Not Available [facility] [address], [place], [address], 03/09/2025 15:42:49 03/09/20 25 03/09/2025 urina lysis , dipst ick Glucose - Not Available [place] [address], [place], [address], 03/09/2025 15:42:49 03/09/20 25 03/09/2025 urina lysis , dipst ick Appearance clear Not Available [facility], [place], [address], 03/09/2025 15:42:49 03/09/20 25 03/09/2025 urina lysis , dipst ick Color light yellow Not Available [place] [address], [place], [address], 03/09/2025 15:42:49 09/12/20 24 09/12/2024 MAMMO , scree asad, digit al, bilat eral No observ ation record ed. [facility] [address], [place], [address], 09/14/2024 21:42:07 Result Notes None recorded. Problems Name Problem SNOMED Code Status Onset Date Resolution Date Notes Provider Name and Address Organization Details Recorded Time Speciali zed medical examinat ion Completed 201002/01/2021 Routine gynecolo gical examinat ion;Prac nic ID: 0001 Marielena dubose [facility] 12:50:32 Screenin g for malignan t neoplasm of cervix Completed 201002/01/2021 Pap Smear;Pr actice ID: 0001 Marielena dubose [facility] 12:50:25 Vaginiti s and vulvovag initis Completed 201002/01/2021 Vaginiti s and vulvovag initis, unspecif ied;Prac nic ID: 0001 Marielena dubose [facility] 12:50:34 Malaise and fatigue [id number] Completed 201002/01/2021 Fatigue And Malaise; Practice ID: 0001 aMrielena dubose [facility] 12:50:16 Adult health examinat ion Completed 201302/01/2021 ROUTINE MEDICAL EXAM;Rec orded Elsewher e: No Locat ion: Yao prasad [facility] S ource: EHR Can Dragger andrea: N Practi ce ID: 0001 Ousmane lable Time: 11:30:00 AM Marielena dubose [facility] 12:50:09 Postvira l fatigue syndrome [id number] Completed 201502/01/2021 Postvira l fatigue syndrome ;Practic e ID: 0001 Marielena Anderson [facility] 12:50:19 Removal of intraute rine device Completed 201502/01/2021 Encounte r for removal of intraute rine contrace ptive device;P ractice ID: 0001 Marielena dubose, [facility] 12:50:23 Pregnanc y test negative [id number] Completed 201502/01/2021 Encounte r for pregnanc y test, result negative ;Practic e ID: 0001 Marielena dubose, [facility] 12:50:21 Insertio n of intraute rine contrace ptive device Completed 201510/09/2021 Encounte r for insertio n of intraute rine contrace ptive device;R ecorded Elsewher e: No [facility]: EHR Can Dragger andrea: N Practi ce ID: 0001 Ousmane lable Time: 09:15:00 AM Marielena dubose [facility] 16:29:54 Depressi ve disorder 29891531 Completed 201510/09/2021 Major depressi ve disorder , single episode, unspecif ied;Prac nic ID: 0001 Marielena dubose, [facility] 16:29:52 Body mass index 25-29 - overweig ht 556137986 Completed 201602/01/2021 Body mass index (BMI) 25.0-25. 9, adult;Re corded Elsewher e: No Locat ion: [facility] S ource: EHR Can Dragger andrea: N Practi ce ID: 0001 Ousmane lable Time: 10:15:00 AM Marielena dubose [facility] 12:50:12 Screenin g for malignan t neoplasm of rectum Completed 201702/01/2021 Encounte r for screenin g for malignan t neoplasm of rectum;P ractice ID: 0001 Marielena dubose, [facility] 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 12:50:[address] Concept Completed 201802/01/2021 Encntr for general adult medical exam w/o abnormal findings ;Recorde d Elsewher e: No Locat ion: Yao prasad [facility] S ource: EHR Can Dragger andrea: N Practi ce ID: 0001 Ousmane lable Time: 01:15:00 PM Marielena dubose [facility] 12:50:29 Problem Notes None recorded. Procedures Surgical History Date Name Laterality Status Provider Name and Address Organization Details Recorded Time 09/12/20 24 Date of Last Mammogram completed [facility] 03/09/2025 14:52:36 02/22/20 24 Date of Last Pap Smear completed Kristin Navarro [facility] 03/09/2025 14:52:15 02/02/20 21 IUD Removal completed Marielenarivera Anderson [facility] 02/01/2021 12:51:55 02/02/20 21 IUD Insertion completed Vicenta Tma CNM [address], [place], [address], [facility] 02/01/2021 12:57:21 11/23/19 11 sinusotomy, multiple completed Marielena Anderson [facility] 10/10/2021 12:18:33 04/12/20 08 section completed Marielena Anderson [facility] 07/23/2020 20:50:11 03/22/20 03 [facility] 07/23/2020 20:50:56 Colonoscopy completed Marielenarivera Anderson [facility] 10/09/2021 16:29:34 Imaging Results None [...] Elsewher e: Yes Loca tion: Yao prasad [facility] odify By: [email or web address] Encount er DateTime : 10/17/20 15 01:00:00 [...] Elsewher e: Yes Loca tion: Yao prasad [facility] odify By: [email or web address] Encounte r DateTime : 07/13/20 12 05:15:00 PM Not Available Not Available Not Available clonazepa m 1 mg tablet take 1 tablet by oral route 3 times every day 04/26 completed Prescrib ed Elsewher e: Yes [facility] By: [email or web address] Encount er DateTime : 10/15/20 11 11:00:00 AM Not Available Not Available Not Available Zithromax Z-Cam 250 mg tablet take 2 tablet (500MG) by oral route every day for 1 day then 1 tablet (250 mg) by oral route once daily for 4 days 10/31 completed Prescrib ed Elsewher e: No Locat ion: Yao prasad [facility] odify By: [email or web address] Encount er DateTime [...] Elsewher e: No Locat ion: Yao prasad [facility] odify By: [email or web address] Prasad jorge DateTime [...] Elsewher e: Yes Loca tion: Yao prasad [facility] odify By: [email or web address] Encount er DateTime : 04/20/20 18 11:30:00 AM Not Available Not Available Not Available flaxseed oil 1,000 mg capsule 07/13 completed Prescrib ed Elsewher e: Yes Loca tion: Yao [facility] odify By: kiki Villanueva r DateTime : 10/15/20 11 11:00:00 AM Not Available Not Available Not Available Metrogel Vaginal 0.75 % (37.5 mg/5 gram) insert 1 applicat orful (37.5MG) by vaginal route every day at bedtime 07/13 completed Prescrib ed Elsewher e: No [facility]at ion: [facility] By: kiki Lovelacete r DateTime : 10/23/20 11 10:14:18 AM Not Available Not Available Not Available trazodone 100 mg tablet TAKE 1 TABLET BY MOUTH DAILY AT BEDTIME active Not Available Not Available No t Available Vitamin D2 1,250 mcg (50,000 unit) capsule take 1 capsule by oral route every week 04/17 completed Prescrib ed Elsewher e: No [facility] By: miley patel DateTime : 02/19/20 [...] Prescrib ed Elsewher e: No [facility] By: miley patel DateTime : 04/30/20 [...] Prescrib ed Elsewher e: Yes Loca [facility]ion: [facility] By: [email or web address] Kay hector DateTime : 10/15/20 11 11:00:00 AM Not Available Not Available Not Available Vitamin D3 10 mcg (400 unit) capsule 07/13 completed Prescrib ed Elsewher e: Yes Loca tion: [facility] odify By: [email or web address] Encounharley r DateTime : [...] Prescrib ed Elsewher e: Yes Loca tion: [facility] odify By: [email or web address] lli Manoharo jacques DateTime [...] Updated DateTime 02/22/2024 163.83 cm 30.4 kg/m2 67713.63 g 117/78 mm[Hg] Niyah Bledsoe [facility] 02/22/2024 14:49:39 Date Recorded Body height Body mass index (BMI) Body weight Systolic And Diastolic Provider Name and Address Organization Details Last Updated DateTime 03/09/2025 163.83 cm 22 kg/m2 27283.73 g 127/77 mm[Hg] Kristin Navarro [facility] 03/09/2025 15:00:49 Date Recorded Body height Body mass index (BMI) Body weight Systolic And Diastolic Provider Name and Address Organization Details Last Updated DateTime 05/16/2023 163.83 cm 29.2 kg/m2 18349.48 g 130/88 mm[Hg] [facility] 05/16/2023 12:07:40 Date Recorded Body height Body mass index (BMI) Body weight Systolic And Diastolic Provider Name and Address Organization Details Last Updated DateTime 06/13/2023 163.83 cm 28.6 kg/m2 60676.11 g 117/79 mm[Hg] [facility] 06/13/2023 11:45:11 Date Recorded Body height Body mass index (BMI) Body weight Systolic And Diastolic Provider Name and Address Organization Details Last Updated DateTime 07/24/2023 163.83 cm 29.8 kg/m2 99153.98 g 129/82 mm[Hg] Cheryl Carter [facility] 07/24/2023 12:24:49 Social History Question Answer Notes LastModified by Organizat ion Details LastModified Time Tobacco Smoking Status Never Smoker Marielena dubose, [facility] 10/09/2021 16:29:34 Do You Have An Advance Directive? No [email or web address] Information n ot available 10/09/2021 If You Are , What Was Your Level Of Alcohol Consumption Prior To ? None [email or web address] Information not available 10/09/2021 How Many Years Have You Consumed Alcohol? 24 [email or web address] Information not available 10/09/2021 Are You Blind Or Do You Have Difficulty Seeing? No [email or web address] Information n ot available 12/24/2022 What Is Your Level Of Caffeine Consumption? Moderate [email or web address] Information not available 10/09/2021 How Much Tobacco Do You Chew? None [email or web address] Information not available 10/09/2021 In The 14 Days Before Symptom Onset, Have You Had Close Contact With A Laboratory-confirm ed COVID-19 While That Case Was Ill? No [email or web address] Information n ot available 02/01/2021 In The 14 Days Before Symptom Onset, Have You Had Close Contact With A Person Who Is Under Investigation For COVID-19 While That Person Was Ill? No [email or web address] Information not available 02/01/2021 Have You Been To An Area Known To Be High Risk For COVID-19? No Information not available 02/01/2021 Are You Deaf Or Do You Have Serious Difficulty Hearing? No [email or web address] Information not available 12/24/2022 What Type Of Diet Are You Following? SPECIFIC [email or web address] Information n ot available 10/09/2021 What Is The Highest Grade Or Level Of School You Have Completed Or The Highest Degree You Have Received? WA41931-8 [email or web address] Information not available 10/09/2021 Are There Any Guns Present In Your Home? No [email or web address] Information not available 10/09/2021 What Was The Date Of Your Most Recent Tobacco Screening? 12/24/2022 [email or web address] Information not available 12/24/2022 Have You Ever Been Counseled For Unhealthy Alcohol Use? No Information not available 10/09/2021 Do You Use Protection During Sex? No [email or web address] Information not available 10/09/2021 Do You Use Your Seat Belt Or Car Seat Routinely? Yes [email or web address] Information not available 02/01/2021 Do You Have Smoke And Carbon Monoxide Detectors In Your Home? Yes [email or web address] Information not available 02/01/2021 How Much Tobacco Do You Smoke? No [id number] Information not available 09/25/2020 Do You Use Sunscreen Routinely? Yes Information not available 02/01/2021 Has Tobacco Cessation Counseling Been Provided? No [email or web address] Information not available 10/09/2021 Have You Used IV Drugs? No [email or web address] Information not available 10/09/2021 Do You Have Difficulty Walking Or Climbing Stairs? No [email or web address] Information not available 12/24/2022 Sex: Unknown Functional Status Question Answer Note LastModified by Organizat ion Details LastModified Time Do you use any illicit or recreational drugs? No [email or web address] Information not available 02/01/2021 Do you or have you ever used any other forms of tobacco or nicotine? No [email or web address] Information not available 10/09/2021 What is your level of alcohol consumption? Occasional [id number] Information not available 09/25/2020 Do you or have you ever used smokeless tobacco? Never used smokeless tobacco [email or web address] Information not available 10/09/2021 Are you able to walk independently without assistance or assistive devices? YESWOREST [email or web address] Information not available 02/01/2021 Are you able to care for yourself independently? 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 No [email or web address] Information not available 12/24/2022 Do you or have you ever used e-cigarettes or vape? Never used electronic cigarettes [email or web address] Information not available 10/09/2021 What is your exercise level? Occasional [id number] Information not available 09/25/2020 Mental Status Question Answer Note LastModified by Organization D etails LastModified Time Do you feel stressed (tense, restless, nervous, or anxious, or unable to sleep at night)? QR21593-2 [email or web address] Information not available 10/09/2021 Family History Relationship Description Onset Age of this Age Resolved Age Notes LastModified by Organization Details LastModified Time Paternal Grandmother Diabetes mellitus [email or web address] Not available 07/23 20:44:29 Paternal Grandmother Alzheimer's disease [email or web address] Not available 2020 16:02:29 Maternal Grandmother Myocardial infarction [email or web address] Not available 06/25 20:44:49 Maternal Grandmother Malignant neoplasm of breast [email or web address] Not available 07/23 20:45:07 Maternal Grandmother Polyp of colon [email or web address] Not available 2020 16:02:29 Sister Cyst of ovary [email or web address] Not available 2020 16:02:29 Sister Anxiety disorder Not available 07/23 20:46:53 Mother Disorder of thyroid gland [email or web address] Not available 07/23 20:46:01 Father Hypertensive disorder [email or web address] Not available 07/23 20:46:27 Brother Anxiety disorder [email or web address] Not available 07/23 20:46:53 Brother Attention deficit hyperactivit y disorder [email or web address] Not available 10/09 16:02:29 Son Autistic disorder [email or web address] Not available 2020 16:02:29 Son Attention deficit hyperactivit y disorder [email or web address] Not available 10/09 16:02:29 Paternal Grandfather Malignant neoplasm of colon [email or web address] Not available 07/23 20:48:20 Notes:Brother: Anxiety, ADD/ [...] ICD10 Code Diagnosis IMO Codes Diagnosis Note [id number] Vicenta Tam [facility] [address],[place] [address] 07/23/2020 15:23:37 07/23/2020 16:16:04 Gynecologic examination 15882181 Z01.419 [id number] Vicenta Tam [facility] [address],[place] [address] 02/01/2021 12:16:07 02/01/2021 13:36:20 Removal of intrauterine device 99946995 Z30.432 Insertion of intrauterine contraceptive device 68892710 Z30.430 [id number] Vicenta Tam [place] [address] [address] 10/09/2021 16:02:05 10/10/2021 13:45:01 Gynecologic examination 19989619 Z01.419 [id number] VISHNU Sousa [facility] [address],[place] [address] 08/05/2022 14:45:40 08/05/2022 15:30:19 Mood swings 03702155 R45.86 She recently had medication dose adjustment [...] plan of care. Contracept ion care management 282572532 Z30.9 [id number] Vicenta Tam CNM [facility] [address] [address] 12/24/2022 09:43:18 12/24/2022 10:40:55 Dysuria 44774499 R30.0 [id number] VISHNU Sousa [place] [address] [address] 02/17/2023 16:19:37 02/17/2023 17:00:31 Screening for malignant neoplasm of breast 306258726 Z12.39 Family his tory of breast cancer 974376488 Z80.3 Family his tory of cancer of colon 963351084 Z80.0 Gynecologi c examination 48039202 Z01.419 Suggested Calcium with Vitamin D 1200-1500m g daily. Patient advised to get an annual flu shot in the fall and she could obtain at [facility] or [facility] care clinic. Also to obtain TDap vaccinatio [...] needed Screening for malignant neoplasm of colon 907295293 Z12.11 [id number] César Lu MD [facility] [address] [address] 04/07/2023 14:55:46 04/21/2023 14:16:29 Obesity 194034587 E66.9 This patient is a 48-year-ol d [...] . She will follow-up in 4 weeks. [id number] César Lu MD [facility] [address] [address] 05/16/2023 12:00:14 05/18/2023 15:42:37 Obesity 881676693 E66.9 [age] old female who presents [...] refine her diet. [facility] She has a thyroid issue. She is going to forward me her thyroid testing and will start thyroid hormone. Spent 20 minutes face-to-fa ce. More than 50% was counseling . [id number] César Lu MD [place] [address],[place] [address] 06/13/2023 11:19:18 06/15/2023 14:18:42 Obesity 177869755 E66.9 this patient is a 48-year-ol d [...] than 50% was counseling . Weight increased 2658768 00 R63.5 [id number] VISHNU Sousa [place] [address],[place] [address] 07/24/2023 12:19:37 07/24/2023 15:31:50 Obesity 611647126 E66.9 Encouraged to continue with regular exercise, [...] counseling and review of plan of care. [id number] VISHNU Sousa [facility] [address],[place] [address] 02/22/2024 14:41:17 02/22/2024 15:34:49 Gynecologic examination 14274677 Z01.419 WWEreviewe d pap guidelines pap updated per pt requestdec lined STI screenmamm ogram order givenrepea t colonoscop y due fall per ptroutine labs UTD/PCP Suggested Calcium with Vitamin D daily. Patient advised to get an annual flu shot in the fall and she could obtain at [facility] or [facility] clinic. Also to obtain TDap vaccinatio n [...] or respond to this email. IUD check 945935146 Z30. 431 non visualized IUD stringspel joel u/s ordered for IUD check Mirena IUD inserted 02/01/2021, will 02/01/2029 Screening for malignant neoplasm of breast 077347419 Z12.39 [id number] César Lu MD [place] [address] [address] 03/09/2025 14:46:34 03/10/2025 08:46:24 Gynecologic examination 29746032 Z01.419 [id number] Annual gynecologi xander exam performed. Patient will [...] declined Delay when starting to pass urine [id number] R39.11 [id number] Will send urine culture to r/o infection. Encouraged patient to keep urinary journal and track symptoms.D iscussed pelvic floor therapy and kegel exercises. Patient desires to monitor symptoms for now.Discus sed urology referral if symptoms worsen. Screening mammography 24 [id number] Z12.31 [id number] Health Concerns Section Related Observation LastModified by Organization Detai ls LastModified Time None Recorded Concern Status LastModified by Organization Details LastModified Time None Recorded Advance Directives Directive N: Payers Insurance Date Sequence Insurance Name Policy Number Policy Rollins Covered Member ID Rollins Member ID Guarantor Name 02/19/2024 1 [facility] ([facility] [id number] F Obed Laureano [id number] Obed Laureano 03/06/2025 1 [facility] Obed Laureano [id number] Obed Laureano Notes Date Note Type Note [...] refine her diet. 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 She has a thyroid issue. She is going to forward me her thyroid testing and will start thyroid hormone. Spent 20 minutes [id number]. More than 50% was counseling. César Lu MD [address], [place], [address], [facility] 05/16/2023 12:46:38 06/13/20 23 text/ht ml this patient is a 48-year-old female who presents for follow-up on weight management. Lost significant weight in the 1st weeks of her efforts. She is active, she is modifying her diet, she is responding fluid occasion. We agreed to continue at 15 mg of phentermine along with topiramate. We Spent 20 minutes [id number]. More than 50% was counseling. César Lu MD [address], [place], [address], [facility] 06/14/2023 01:12:45 07/24/20 23 text/ht ml 48yopresents for weight management f/ushe was previously on phentermine/topiramate but ran out of refills recentlyshe has been incorporating healthy diet changesshe is exercising VISHNU Sousa [address], [place], [address], [facility] 07/24/2023 14:50:04 02/22/20 [...] per pt) VISHNU Sousa [address], [place], [address], [facility] 02/22/2024 15:34:27 03/09/20 [...] frequency. RAMON HERRERA, LISA [address], [place], [address], [facility] 03/09/2025 17:36:53 OBGyn Episode Ob Episode Information Episode Created Date Number of Fetuses Patient Bloodtype Patient rh Status Prepregnancy Weight lbs Domestic Partner Domestic Partner Phone Father Name Event Host Status 07/23/20 20 1 CLOSED Fetus Data [...] Domestic Partner Domestic Partner Phone Father Name Event Host Status 07/23/20 20 2 CLOSED Fetus Data [...] Domestic Partner Domestic Partner Phone Father Name Event Host Status 07/23/20 20 1 CLOSED Fetus Data [...] Domestic Partner Domestic Partner Phone Father Name Event Host Status 07/23/20 20 1 CLOSED Fetus Data [...]
--- OUTSIDE RECORDS SUMMARY | 2025-11-20 10:52 | XMS_ITS | Clinical Summary ---
Author Organization [facility] Address [address] [place] [address] Care Team Providers Care Dockmaster Name Role Phone Ladarius Hagan MD Primary Care Provider [phone] Source Comments [facility],non-owned Affiliates and Associated Physician Practices is amultiple site organization consisting of ambulatory clinics and hospital sitesin [place], [place], [place] and [place]. This disclosure is being madepursuant to the Care Everywhere program and may not contain all information available regarding this patient. Last updated 18.[facility] Allergies No known active allergies Medications * [...] on file Legal Sex Female 10:18 AM NETWORK AND THREAT SUPPORT SPECIALIST Gender Identity Not on file Sexual Orientation Not on file Last Filed Vital Signs Vital Sign Reading Time Taken Comments Blood Pressure 106/72 12/13/2017 2:55 PM NETWORK AND THREAT SUPPORT SPECIALIST Pulse 80 12/13/2017 2:55 PM NETWORK AND THREAT SUPPORT SPECIALIST Temperature 36.7 C (98 F) 12/13/2017 2:55 PM NETWORK AND THREAT SUPPORT SPECIALIST Respiratory Rate 16 12/13/2017 2:55 PM NETWORK AND THREAT SUPPORT SPECIALIST Oxygen Saturation 96% 12/13/2017 2:55 PM NETWORK AND THREAT SUPPORT SPECIALIST Inhaled Oxygen Concentration - - Weight 65.3 kg (144 lb) 12/13/2017 2:55 PM NETWORK AND THREAT SUPPORT SPECIALIST Height 167.6 cm (5' 6) 12/13/2017 2:55 PM NETWORK AND THREAT SUPPORT SPECIALIST Body Mass Index 23.24 12/13/2017 2:55 PM NETWORK AND THREAT SUPPORT SPECIALIST Plan of Treatment Health Maintenance Due Date [...] DEPRESSION SCREENING 11/23/2024 COVID-19 VACCINE (1 - 2024-2 6 season) 2025 INFLUENZA VACCINE (#1) 2025 9, [...] complete this topic Insurance ECHO Care Teams Dockmaster Relationship Specialty Start Date End Date Ladarius Hagan MD [address] [place] [address] PCP - General Family Medicine 01/12/17
--- OUTSIDE RECORDS SUMMARY | 2025-11-20 10:52 | XMS_ITS | Patient Health Record ---
Author Organization [facility] [employer] Address [address] [facility] [address] [place] [address] Care Team Providers Care Solar Engineer Name Role Phone Danya VELASQUEZ, Ladarius Primary Care Provider Rodney Sudeep Dinh Unavailable [phone] Allergies No Known Allergies Reason For Referral No Information Medications Medication SIG (Take, Route, Frequency, Duration) Notes Start Date End Date Status buPROPion HCl ER (XL) 300 MG Tablet Extended Release 24 Hour 1 tablet every morning Oral Once a day; Duration: 90 days Active traZODone HCl 100 MG Tablet 1 tablet at bedtime Oral Once a day; Duration: 90 days Active Ciclopirox 1 % Shampoo APPLY TOPICALLY 2 TO 3 TIMES WEEKLY External; Duration: 15 Days Active Zepbound 5 MG/0.5ML Solution Auto-injector ADMINISTER 5 MG UNDER THE SKIN WEEKLY Subcutaneous; Duration: 28 Days Active Ketoconazole 2 % Cream APPLY TOPICALLY T O THE AFFECTED AREA TWICE DAILY External; Duration: 15 Days Active Venlafaxine HCl ER 75 MG Capsule Extended Release 24 Hour 1 capsule every motning Oral Once a day; Duration: 90 days Active Social History Tobacco Use: Social History Observation Description Date Details (start date - stop date) Never Smoker NA - NA Sex Assigned At : Social History Observation Description Sex Assigned At Female Social History Miscellaneous: Social Info Question Answer Notes Advance Care Planning Are you your own decision-maker Yes Do you have Power of It Recruiter for Health or Medi xander? Yes Do you have a power of boat motor mechanic for health? Yes Do you have power of boat motor mechanic for Medical ? 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 Problems Problem Type SNOMED Code ICD Code Onset Dates Problem Status W/U Status Risk Notes Problem Major depression, single episode, in complete remission (65394724) Major depressive disorder, single episode, in full remission (F32.5) 4 Active confirmed Problem Generalized anxiety disorder (02636189) Generalized anxiety disorder (F41.1) 4 Active confirmed Problem Primary insomnia (6135143) Primary insomnia (F51.01) 4 Active confirmed Vital Signs Heart Rate 83 /min 06/15/2025 Height-cm 165.10 cm 06/15/2025 Blood pressure diastolic 83 mm Hg 06/15/2025 Weight-kg 61.96 kg 06/15/2025 Height 65.00 in 06/15/2025 Blood pressure systolic 123 mm Hg 06/15/2025 Weight 136.6 lbs 06/15/2025 BMI 22.73 kg/m2 06/15/2025 Encounters Encounter Location Date Provider Diagnosis [facility] [address] [place] [address] 11/24/2024 Sudeep Karena Generalized anxiety disorder F41.1 ; Major depressive disorder, single episode, in full remission F32.5 and Primary insomnia F51.01 [facility] [address] [place] [address] 01/05/2025 Sudeep Karena Generalized anxiety disorder F41.1 ; Major depressive disorder, single episode, in full remission F32.5 and Primary insomnia F51.01 [facility] [address] [place] [address] 06/15/2025 Sudeep Karena Generalized anxiety disorder F41.1 ; Major depressive disorder, single episode, in full remission F32.5 and Primary insomnia F51.01 Assessments Encounter Date Diagnosis (ICD Code) Assessment Notes Treatment Notes Treatment Clinical Notes Section Notes 11/24/2024 Generalized anxiety disorder (ICD-10 - F41.1) Sleep Disturbances with Twitching and Jerking Movements - Plan: - Reduce venlafaxine from 150 mg to 75 mg daily and monitor for improvement. - Reevaluate in 6 weeks. - If depression worsens, patient may increase venlafaxine back to 150 mg and contact provider. - If no improvement after reducing venlafaxine, consider adjusting trazodone or switching to a different sleep aid. Depression - Plan: - Reduce venlafaxine to 75 mg daily. - Monitor for any worsening of depressive symptoms. - Continue bupropion 300 mg daily. - If depression worsens, patient may increase venlafaxine back to 150 mg and contact provider. Insomnia - Plan: - Continue trazodone 100 mg nightly for now. - If no improvement in twitching and jerking movements after reducing venlafaxine, consider adjusting trazodone or switching to a different sleep aid. Weight Loss - Plan: - Continue Zepbound as prescribed and monitor progress. Follow-up - Plan: - Reevaluate sleep disturbances, depression, and insomnia in 6 weeks. - Adjust medications as needed based on patient's response to venlafaxine dose reduction. - Provider will send prescription for venlafaxine ER 75 mg to the pharmacy. - Patient instructed to call if depression worsens before the follow-up appointment. 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 Condition is being managed with ongoing medications. No reported side effects from current medications. - Continue Bupropion. - Continue Venlafaxine 75 mg. - Continue Trazodone 100 mg at bedtime. - Continue Ibuprofen 300 mg. - Continue Zepbound as previously used. 01/05/2025 Major depressive disorder, single episode, in full remission (ICD-10 - F32.5) 06/15/2025 Major depressive disorder, single episode, in full remission (ICD-10 - F32.5) 11/24/2024 Major depressive disorder, single episode, in full remission (ICD-10 - F32.5) Sleep Disturbances with Twitching and Jerking Movements - Plan: - Reduce venlafaxine from 150 mg to 75 mg daily and monitor for improvement. - Reevaluate in 6 weeks. - If depression worsens, patient may increase venlafaxine back to 150 mg and contact provider. - If no improvement after reducing venlafaxine, consider adjusting trazodone or switching to a different sleep aid. Depression - Plan: - Reduce venlafaxine to 75 mg daily. - Monitor for any worsening of depressive symptoms. - Continue bupropion 300 mg daily. - If depression worsens, patient may increase venlafaxine back to 150 mg and contact provider. Insomnia - Plan: - Continue trazodone 100 mg nightly for now. - If no improvement in twitching and jerking movements after reducing venlafaxine, consider adjusting trazodone or switching to a different sleep aid. Weight Loss - Plan: - Continue Zepbound as prescribed and monitor progress. Follow-up - Plan: - Reevaluate sleep disturbances, depression, and insomnia in 6 weeks. - Adjust medications as needed based on patient's response to venlafaxine dose reduction. - Provider will send prescription for venlafaxine ER 75 mg to the pharmacy. - Patient instructed to call if depression worsens before the follow-up appointment. 01/05/2025 Primary insomnia (ICD-10 - F51.01) 11/24/2024 Primary insomnia (ICD-10 - F51.01) Sleep Disturbances with Twitching and Jerking Movements - Plan: - Reduce venlafaxine from 150 mg to 75 mg daily and monitor for improvement. - Reevaluate in 6 weeks. - If depression worsens, patient may increase venlafaxine back to 150 mg and contact provider. - If no improvement after reducing venlafaxine, consider adjusting trazodone or switching to a different sleep aid. Depression - Plan: - Reduce venlafaxine to 75 mg daily. - Monitor for any worsening of depressive symptoms. - Continue bupropion 300 mg daily. - If depression worsens, patient may increase venlafaxine back to 150 mg and contact provider. Insomnia - Plan: - Continue trazodone 100 mg nightly for now. - If no improvement in twitching and jerking movements after reducing venlafaxine, consider adjusting trazodone or switching to a different sleep aid. Weight Loss - Plan: - Continue Zepbound as prescribed and monitor progress. Follow-up - Plan: - Reevaluate sleep disturbances, depression, and insomnia in 6 weeks. - Adjust medications as needed based on patient's response to venlafaxine dose reduction. - Provider will send prescription for venlafaxine ER 75 mg to the pharmacy. - Patient instructed to call if depression worsens before the follow-up appointment. 06/15/2025 Primary insomnia (ICD-10 - F51.01) Recent difficulty sleeping, attributed to increased anxiety and stress. Sleep issues are being managed with ongoing medications. - Continue Trazodone 100 mg at bedtime. 01/05/2025 Other Sleep Issues and Jerking Movements - Assessment: Patient reports improvement in sleep and a reduction in jerking movements since the last visit, though twitching still occurs occasionally. The current medication regimen appears to be effective. - Plan: - Continue venlafaxine 75 mg daily. - Continue trazodone at the current dose. - Monitor for any worsening or relapse of symptoms. Perimenopause - Assessment: Patient is in the perimenopausal stage and expresses fear of discontinuing venlafaxine due to potential effects on mood and symptoms. - Plan: - Continue monitoring symptoms and mood during perimenopause. - Reevaluate the need for medication adjustments if any significant changes occur. - Advise the patient to wait and watch for any changes in symptoms or side effects. Anxiety - Assessment: Patient reports mild anxiety but is managing it through yoga, stretching, and breathing exercises. - Plan: - Encourage the continuation of non-pharmacologi xander interventions for anxiety management. - Monitor anxiety levels and consider medication adjustments if necessary. Depression - Assessment: Patient's PHQ-9 score is zero, indicating no current symptoms of depression. - Plan: - Continue venlafaxine 75 mg daily for mood stabilization. - Monitor for any signs of depression recurrence. Follow-up - Assessment: Patient requires ongoing monitoring and medication management. - Plan: - Schedule a follow-up appointment in 5 months or sooner if any concerns arise. - Advise patient to use the [facility] or the clinic's website to book appointments and request refills. - Send prescriptions to [facility]. 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 This event resulted in a panic attack. Despite this isolated incident, the patient states she is doing pretty well overall. 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 Plan: - Continue current medication regimen: - Bupropion 300 mg - Melaflexin 75 mg - Trazodone 100 mg at bedtime - Encourage ongoing stress management techniques Weight Loss Assessment: Patient reports a 40-pound weight loss, which appears to be a positive outcome associated with the current medication regimen, particularly bupropion. 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 She reports finding the work challenging due to heat and physical demands of traveling between appointments. However, she denies significant work-related stress and mentions a recent raise as a positive factor. Plan: - Encourage continuation of current coping strategies for managing work-related challenges - Monitor for any changes in work-related stress at future appointments Disclaimer: This note has been transcribed using speech recognition software and serves as a reflection of the patient's visit. While efforts have been made to ensure accuracy, there may be errors, including lpn inaccuracies and misspellings of medication names. This document should not be considered a verbatim record, and any discrepancies should be verified with the provider. Plan Of Treatment Next Appt Details Provider Name:Sudeep Carroll Karena , 12/14/2025 02:00:00 PM, [address], [facility] [address], [place], [address], Insurance Providers Payer Name Payer Address Payer Phone Subscriber Number Group Number Insured Name Patient Relationship to Insured Coverage Start Date Coverage End Date [facility] [address] [place] [phone] [id number] JAYY RUTLEDGE Self - patient is the insured Medical (General) History Medical History History ICD Code Problems: Generalized anxiety disorder Major depression in remission Primary insomnia , Generalized anxiety disorder Major depressive disorder, in full remis jackie Surgical History Surgery Date(Month/Year) Any surgical history 02/14/2003 Sinus surgery 02/14/2011 Other 04/12/2008
== END 2025-11-20 10:23 | disposition home or self-care (01) ==
PROVIDERS: PCP Family Medicine
DX: R92.8 Other abnormal and inconclusive findings on diagnostic imaging of breast (principal)
CPT/HCPCS: 77061; 77065; G0279